=== PATIENT | female | born 1945 | race Caucasian/White ===

== ENCOUNTER → 2016-05-10 | Day surgery (SDC) | payer MEDICARE, SELFPAY ==
[2016-05-10 10:02] LABS: HCT 40.8 % (37.0-47.0); HGB 13.8 g/dl (12.5-16.0); MCH 28.8 pg (25.0-31.0); MCHC 33.8 g/dL (32.0-36.0); MPV 9.2 fL (6.0-9.5); RBC 4.8 M/uL (4.20-5.40); RDW 14.3 % (11.5-14.0); WBC 10.4 K/uL (4.0-10.5)
[2016-05-10 10:46] LABS: ALBUMIN 3.5 g/dL (3.4-4.8); BILIRUBIN - TOTAL 0.2 mg/dL (0.1-1.0); CREATININE 0.9 mg/dL (0.5-1.0); GLOBULIN (CALCULATION) 3.4 g/dL (2.2-4.2); POTASSIUM 5.2 mmol/L (3.5-5.1); TOTAL PROTEIN 6.9 g/dL (6.4-8.3)
== END | disposition home or self-care (01) ==
LOC: FAS 08:58
PROVIDERS: Surgery
DX: Z12.11 Encounter for screening for malignant neoplasm of colon (principal); K29.50 Unspecified chronic gastritis without bleeding; D12.0 Benign neoplasm of cecum; D12.6 Benign neoplasm of colon, unspecified; B96.81 Helicobacter pylori [H. pylori] as the cause of diseases classified elsewhere; I10 Essential (primary) hypertension; I25.10 Atherosclerotic heart disease of native coronary artery without angina pectoris; I25.2 Old myocardial infarction; E11.9 Type 2 diabetes mellitus without complications; E78.5 Hyperlipidemia, unspecified; E78.00 Pure hypercholesterolemia, unspecified; J30.9 Allergic rhinitis, unspecified; F41.9 Anxiety disorder, unspecified; F32.9 Major depressive disorder, single episode, unspecified; F17.210 Nicotine dependence, cigarettes, uncomplicated; D68.9 Coagulation defect, unspecified; Z95.5 Presence of coronary angioplasty implant and graft; Z88.8 Allergy status to other drugs, medicaments and biological substances; Z98.49 Cataract extraction status, unspecified eye; Z90.49 Acquired absence of other specified parts of digestive tract; Z90.710 Acquired absence of both cervix and uterus; Z98.51 Tubal ligation status; Z82.3 Family history of stroke; Z81.8 Family history of other mental and behavioral disorders; Z83.42 Family history of familial hypercholesterolemia; Z82.49 Family history of ischemic heart disease and other diseases of the circulatory system; Z83.3 Family history of diabetes mellitus; Z82.61 Family history of arthritis; Z79.84 Long term (current) use of oral hypoglycemic drugs; Z79.02 Long term (current) use of antithrombotics/antiplatelets; Z79.899 Other long term (current) drug therapy
CPT/HCPCS: 36415; 80053; 88305; 88312; J2704

== ENCOUNTER 2020-08-03 11:49 | Emergency (ER) | payer MEDICARE ==
[~2020-08-03 11:49] MED LIST: ARICEPT 5MG TABL5 MG PO; ASPIRIN EC81 MG PO; DIFICID200 MG PO; LACTINEX1 EACH PO; LEXAPRO20 MG PO; LIPITOR40 MG PO; METFORMIN HCL500 MG PO; NORVASC5 MG PO; PEPCID AC20 MG PO; PLAVIX75 M1 PO; TOPAMAX25 MG PO; TOPROL XL 50 MG50 MG PO; TRAZODONE 150M150 MG PO; VENTOLIN HFA IN18 GM INH; ZESTORETIC 20-1 EACH PO
[2020-08-03 12:41] LABS: BASOPHIL 0.2 % (0-2); EOSINOPHIL 0.4 % (0-7); HCT 41.4 % (37.0-47.0); HGB 14.2 g/dl (12.5-16.0); LYMPHOCYTE 21.9 % (15-48); MCH 30.4 pg (25.0-31.0); MCHC 34.3 g/dL (32.0-36.0); MCV 88.7 fL (78.0-100.0); MONOCYTE 4.1 % (0-12); MPV 9.4 fL (6.0-9.5); NEUTROPHIL 72.9 % (41-80); NRBC 0; PLT 357 K/uL (150-400); RBC 4.67 M/uL (4.20-5.40); RDW 13.2 % (11.5-14.0); WBC 13.3 K/uL (4.0-10.5)
[2020-08-03 13:21] LABS: BILIRUBIN - TOTAL 0.3 mg/dL (0.2-1.0); BUN/CREAT RATIO (CALC) 21.8 RATIO; CREATININE 0.87 mg/dL (0.51-0.95); GLOBULIN (CALCULATION) 3.8 g/dL; TOTAL PROTEIN 7.8 g/dL (6.4-8.2)
== END 2020-08-03 14:20 | disposition home or self-care (01) ==
LOC: FER 11:49
PROVIDERS: Emergency Medicine
DX: K52.9 Noninfective gastroenteritis and colitis, unspecified (principal); E11.9 Type 2 diabetes mellitus without complications; I10 Essential (primary) hypertension; J44.9 Chronic obstructive pulmonary disease, unspecified; F17.210 Nicotine dependence, cigarettes, uncomplicated; Z79.84 Long term (current) use of oral hypoglycemic drugs
CPT/HCPCS: 36415; 74022; 80053; 85025